=== PATIENT | female | born 1990 | race Caucasian/White ===

== ENCOUNTER 2017-03-25 11:40 | Inpatient (IN) | payer OTHER ==
[2017-03-25] MEDS ORDERED: RINGERS SOLUTION,LACTATED 300 ML IV ONE (12:37)
[2017-03-25] MEDS ORDERED: OXYTOCIN/NORMAL SALINE 20 UNIT/1,000 ML RTUINJ IV PRN (12:37)
[2017-03-25] MEDS ORDERED: RINGERS SOLUTION,LACTATED 1,000 ML IV PRN (12:37)
[2017-03-25 13:06] LABS: ABSOLUTE EOSINOPHILS # (AUTO) 0.3 10^3/uL (0.0-0.6); ABSOLUTE MONOCYTES (AUTO) 0.5 10^3/uL (0.1-1.4); BASOPHILS % (AUTO) 0.4 % (0-2); EOSINOPHILS % (AUTO) 3.3 % (0-6); HEMATOCRIT 32.7 % (36.0-47.0); HEMOGLOBIN 11.4 g/dL (12.0-15.5); HGB HCT DIFFERENCE 1.5; LYMPHOCYTES % (AUTO) 19.9 % (13-45); MEAN CORPUSCULAR HEMOGLOBIN 31.9 pg (27.0-33.4); MEAN CORPUSCULAR VOLUME 91 fl (80-97); MONOCYTES % (AUTO) 5.2 % (3-13); RED BLOOD COUNT 3.59 10^6/uL (3.72-5.28); SEGMENTED NEUTROPHILS % (AUTO) 71.2 % (42-78); WHITE BLOOD COUNT 9.8 10^3/uL (4.0-10.5)
[2017-03-25 13:18] LABS: APPEARANCE,URINE CLEAR; BILIRUBIN,URINE NEGATIVE (NEGATIVE); GLUCOSE, URINE NEGATIVE (NEGATIVE); KETONES,URINE TRACE mg/dL (NEGATIVE); LEUKOCYTE ESTERASE,URINE NEGATIVE (NEGATIVE); NITRITE,URINE NEGATIVE (NEGATIVE); PROTEIN,URINE NEGATIVE (NEGATIVE); URINE SPECIFIC GRAVITY 1.003; UROBILINOGEN,URINE NEGATIVE mg/dL (<2.0)
[2017-03-25 13:59] LABS: URINE BARBITURATES SCREEN NEGATIVE; URINE METHADONE SCREEN NEGATIVE; URINE OPIATES LOW NEGATIVE; URINE PHENCYCLIDINE SCREEN NEGATIVE
--- NOTE | 2017-03-25 14:39 | L&D Progress Notes ---
PROGRESS NOTES Datetime Report Generated by CPN: 03/25/2017 14:38 PROGRESS NOTE Impression Other: contractions spacing Procedures: Artificial ROM Procedures- Other: clear fluid Plan: Continue Present Management Informed Consent Obtained: Vaginal Delivery Vital Signs : Reviewed; Within Normal Limits Comment: contractions painful, slightly spacing. AROM for augmentation. continue current mgt. pt to get up out of bed. anticipate . c/w Dr Hendricks. Plan current dose of synthroid 137 mcg daily post and lovenox 40mg subcutaneously daily. Will need rhogam PP if baby is Rh positive VAGINAL EXAM Dilatation: 5 Effacement: 90 Station: -2 Contractions: Q3 mins MEMBRANES Membranes: Ruptured Amniotic Fluid Color: Clear FETUS A FHR - Baseline: 115 Monitoring: External US Variability: Moderate 6-25bpm Accelerations: 15X15 Decelerations: None FHR Category: Category I : 40.0 Estimated Weight (gm): 3200 Presentation: Vertex Presentation- Other: by sono today and leopolds SIGNATURE SIGNATURE: [id number] Assignment: Tammy Hendricks MD Signature: with User ID: [email or web address] : with User ID: [email or web address]
[2017-03-25] MEDS ORDERED: MISOPROSTOL 0.2 MG TABLET ONE (16:12)
[2017-03-25] MEDS ORDERED: OXYTOCIN/NORMAL SALINE 20 UNIT/1,000 ML RTUINJ ONE ×2 (16:12→17:11)
[2017-03-25] MEDS ORDERED: LIDOCAINE 1% INJ-PF (10 MG/ML) 30 ML SDV ONE (16:12)
[2017-03-25] MEDS ORDERED: ZOLPIDEM TARTRATE 5 MG TABLET PO PRN (18:42)
[2017-03-25] MEDS ORDERED: PSEUDOEPHEDRINE HCL 30 MG TABLET PO PRN (18:42)
[2017-03-25] MEDS ORDERED: DIPH/PERTUSS(ACELL)/TETANUS VAC/PF 0.5 ML SYR (>=10YO) IM PRN (18:42)
[2017-03-25] MEDS ORDERED: PROMETHAZINE HCL INJ 25 MG/1 ML VIAL IV PRN (18:42)
[2017-03-25] MEDS ORDERED: ACETAMINOPHEN 650 MG SUPP.RECT PR PRN (18:42)
[2017-03-25] MEDS ORDERED: ACETAMINOPHEN WITH CODEINE #3 TABLET PO PRN (18:42)
[2017-03-25] MEDS ORDERED: MEASLES,MUMPS&RUBELLA VACC/PF 0.5 ML VIAL SUBCUT PRN (18:42)
[2017-03-25] MEDS ORDERED: PROMETHAZINE HCL 25 MG TABLET PO PRN (18:42)
[2017-03-25] MEDS ORDERED: PROMETHAZINE HCL 25 MG SUPP.RECT PR PRN (18:42)
[2017-03-25] MEDS ORDERED: DIPHENHYDRAMINE HCL 25 MG CAPSULE PO PRN (18:42)
[2017-03-25] MEDS ORDERED: OXYTOCIN/NORMAL SALINE 1,000 ML IV PRN (18:42)
[2017-03-25] MEDS ORDERED: BENZOCAINE/MENTHOL AEROSOL SPRAY 56 ML TOP PRN (18:42)
[2017-03-25] MEDS ORDERED: DIBUCAINE 1% OINTMENT 28 GM TP PRN (18:42)
[2017-03-25] MEDS ORDERED: NA PHOS,M-B/NA PHOS,DI-BA (ADULT) 133 ML ENEMA PR PRN (18:42)
[2017-03-25] MEDS ORDERED: MAGNESIUM HYDROXIDE SUSP 30 ML UDCUP PO PRN (18:42)
[2017-03-25] MEDS ORDERED: IBUPROFEN 800 MG TABLET ONE (19:26)
[2017-03-25] MEDS: IBUPROFEN 800 MG TABLET PO SCH (19:28)
[2017-03-25 19:37] LABS: PARTIAL THROMBOPLASTIN TIME 27.3 SEC (23.5-35.8)
--- NOTE | 2017-03-25 19:40 | Delivery Summary ---
Del Sum A-C Datetime Report Generated by CPN: 03/25/2017 19:40 DELIVERY PERSONNEL DELIVERY PERSONNEL: [id number] Delivery Doctor:: Eliu Rodríguez CNM Nurse Visual Aid Expert Certified:: Eliu Rodríguez CNM Labor and Delivery Nurse:: CAROLYN Pathak Labor and Delivery Nurse:: Nancy Dodson RN Train Operator/SALES REPRESENTATIVE EDUCATION COURSES: J Shaikh ST Train Operator/SALES REPRESENTATIVE EDUCATION COURSES: Inocencia Monroy, HOIST MECHANIC MATERNAL INFORMATION Delivery Anesthesia: Local Medications After Delivery: Pitocin Bolus-Please Comment; Pitocin Drip 20 Units/1000ml NSS Maternal Complications: None Provider Comments: Admitted for labor. labor progressed normally to DIRECT OA [facility] SHOULDERS RAPIDLY DELIVERING DIRECT OA. CORD DOUBLE CLAMPED AND CUT BY FOB AT 1.5 MINS. PLACENTA DELIVERED SPONTANEOUSLY AND INTACT WITH 3VC. LACERATIONS DESCRIBED ABOVE REPAIRED UNDER LOCAL ANESTHESIA. MOTHER AND STABLE IN L_D #5 FOR THE FIRST 1/2 HOUR, THEN TO NURSERY FOR EVALUATION. LABOR SUMMARY EDC: 03/25/2017 00:00 No. Babies in Womb: 1 Attempted: No Labor Anesthesia: None LABOR INFORMATION Reason for Induction: Not Applicable Onset of Labor: 03/25/2017 14:20 Complete Dilatation: 03/25/2017 16:50 Oxytocin: N/A Group B Beta Strep: NEGATIVE Antibiotics # of Doses: 0 Antibiotics Time of Last Dose: N/A Name of Antibiotic Given: N/A Steroids Given: None Reason Steroids Not Administered: Not Applicable MEMBRANES Membranes Rupture Method: Artificial Rupture of Membranes: 03/25/2017 14:20 Length of Rupture (hr): 2.80 Amniotic Fluid Color: Clear Amniotic Fluid Amount: Moderate STAGES OF LABOR Stage 1 hr: 2 Stage 1 min: 30 Stage 2 hr: 0 Stage 2 min: 18 Stage 3 hr: 0 Stage 3 min: 8 Total Time in Labor hr: 2 Total Time in Labor min: 56 VAGINAL DELIVERY Episiotomy: None Laceration #1: Periurethral Laceration Extension #1: First Degree Laceration #2: Perineal Laceration Extension #2: First Degree Laceration #3: Perineal Laceration Extension #3: Second Degree Laceration Repair: Yes Laceration Repair Note: right periurethral and left periurethral extending to second degree perineal laceration with golf-ball sized hematoma under lac-viewed with Dr Hendricks. laceration repair over hematoma and pt encouraged to use ice packs frequently and notify nursing if it enlarges Sponge Count Correct: N/A Sharps Count Correct: N/A CSECTION DELIVERY Primary Indication: N/A Secondary Indication: N/A CSection Incidence: N/A Labor: N/A Elective: N/A CSection Incision: N/A BABY A INFORMATION Infant Delivery Date/Time: 03/25/2017 17:08 Method of Delivery: Vaginal Born in Route : No : N/A Forceps: N/A Vacuum Extraction: N/A Shoulder Dystocia : No PRESENTATION/POSITION BABY A Presentation: Cephalic Cephalic Presentation: Vertex Vertex Position: OA Breech Presentation: N/A PLACENTA INFORMATION BABY A Placenta Delivery Time : 03/25/2017 17:16 Placenta Method of Delivery: Spontaneous Placenta Status: Delivered SCORES BABY A Heart Rate 1 min: >100 bpm Resp Effort 1 min: Good Cry Reflex Irritability 1 min: Cough or Sneeze or Pulls Away Muscle Tone 1 min: Active Motion Color 1 min: Body Bement, Extremities Blue Resuscitation Effort 1 min: Tactile Stimulation SCORE 1 MIN: 9 Heart Rate 5 min: >100 bpm Resp Effort 5 min: Good Cry Reflex Irritability 5 min: Cough or Sneeze or Pulls Away Muscle Tone 5 min: Active Motion Color 5 min: Body B[place], Extremities Blue Resuscitation Effort 5 min: N/A SCORE 5 MIN: 9 Resuscitation Effort 10 min: N/A INFORMATION BABY A Gestational Age at Delivery: 40.0 Gestational Status: Full Term- 39- 40.6 Weeks Infant Outcome : Liveborn Condition : Stable Sex: Male IDENTIFICATION BABY A Verification Date/Time: 03/25/2017 17:08 ID Band Number: [id number] Mother's Name Verified: Yes RN Verifying : C. Odell, BL. West, RN WEIGHT/LENGTH BABY A Infant Birthweight (gm): 3750 Weight (lb): 8 Infant Weight (oz): 4 Length (in): 20.50 Length (cm): 52.07 CORD INFORMATION BABY A No. Cord Vessels: 3 Nuchal Cord : N/A Cord Blood Taken: Yes-For Eval (Mom's Blood Type - or O+) Infant Suction: Mouth; Nose ASSESSMENT BABY A Infant Complications: None Physical Findings at Delivery: Within Normal Limits Infant Respirations: Appears Normal Skin to Skin: Yes Machine Cell Tuber/ALS Called : No Care By: Kala Dodson RN Transferred To: Remains with Mother BABY B INFORMATION : N/A SIGNATURES Assignment: Tammy Hendricks MD Signature: with User ID: [email or web address] : with User ID: [email or web address] : I was personally available for consultation and serving as supervising physician for the P.
[2017-03-25 19:50] LABS: CREATININE RESULT 0.53 mg/dL (0.52-1.25)
[2017-03-25] MEDS ORDERED: ENOXAPARIN SODIUM INJ 40 MG/0.4 ML DISP.SYRIN SUBCUT ONE (20:00)
--- NOTE | 2017-03-25 20:03 | Admission Physical ---
Datetime Report Generated by CPN: 03/25/2017 20:03 CURRENT ADMISSION Chief Complaint: Uterine Contractions; Sent from OB Office for Evaluation and Treatment - Please Specify Chief Complaint Other: NONREACTIVE NST IN CLINIC. Also pt sylvain regularly with cx 4/-1 Indication for Induction: Not Applicable Indication for Induction: Term, Intrauterine ; Active Labor Admit Plan: Admit to Unit; Initiate Labor Protocol Admit Plan- Other: augmentation if needed ALLERGIES Medication Allergies: Yes Medication Allergies: penicillin G procaine/UT/Facial swelling (03/25/2017) Medication Allergies: cillins- hives, facial swelling Latex: No Latex Allergies Food Allergies: NONE Environmental Allergies: NONE OBSTETRICAL HISTORY EDC: 03/25/2017 00:00 : 2 Para: 1 Term: 1 : 0 SAB: 0 IAB: 0 Ectopic: 0 Livin Cesareans: 0 VBACs: 0 Multiple Births: 0 Gestational Diabetes: No Rh Sensitization: No Incompetent Cervix: No JACK: No Infertility: No ART Treatment: No Uterine Anomaly: No IUGR: No Hx Previous C/S: No Macrosomia: No Hx Loss/Stillborn: No PIH: No Hx : No Placenta Previa/Abruption: No Depression/PP Depression: No PTL/PROM: No Post Hemorrhage: No Current Procedures: Ultrasound SEE RECORDS Alcohol: No Marijuana : No Cocaine: No Other Illicit Drugs: No Cigarettes: Former Smoker. 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 INFECTIOUS HISTORY Gonorrhea: No Genital Herpes: No Chlamydia: Yes Tuberculosis: No Syphilis: No Hepatitis: No HIV/AIDS Exposure: No Rash or Viral Illness: No HPV: No Infectious History Comments: 2009 PHYSICAL EXAM General: Normal HEENT: Normal Neurologic: Normal Thyroid: Deferred Heart: Normal Lungs: Normal Breast: Deferred Back: Normal Abdomen: Normal Genitourinary Exam: Deferred Extremities: Normal DTRs: Deferred Pelvic Type: Adequate Vital Signs: Reviewed; Within Normal Limits VAGINAL EXAM Dilatation: 5 Effacement: 90 Station: -2 Contraction Comments: Q3 mins MEMBRANES Membranes: Ruptured Amniotic Fluid Color: Clear FETUS A EGA: 40.0 Monitoring: External US FHR- Baseline: 115 Variability: Moderate 6-25bpm Decelerations: None FHR Category: Category I FHR Comments: reactive NST, negative TOOL POLISHER at [facility] Estimated Weight (gm): 3200 Presentation: Vertex Presentation- Other: by sono today and lekeshawnds Admit Comment: 27yo , pelvis provento 7lb 2oz. hx of asthma as a child with no asthma attack in over 10 yrs. Also hx of thyroid CA with thyroidectomy and subsequent blood clots in neck. Baby has Left ureteropelvic junction obstruction -followed by MFM-Peds notified by Dr Hendricks. Pt admitted for Labor, GBS negative. prefers saline lock only and plans no epidural. DVT prophylaxis by ambulation. Dr Moody's office called-Nati states pt had one visit Feb 20 this year and that she will fax over MD notes. Plan: routine labor care. augmentation if needed. anticipate . PLANS FOR LABOR AND DELIVERY Labor and Delivery: None Pain Management: Natural Feeding Preference: Breast Benefit of Breast Feed Discussed: Yes Circumcision: Yes INFORMED CONSENT Informed Consent Obtained: Vaginal Delivery Assignment: Tammy Hendricks MD Signature: with User ID: [email or web address], Addendum/Amendment: Rh negative. received rhogam Signature: with User ID: [email or web address] : with User ID: Alan, Addendum/Amendment: Rh negative. received rhogam : with User ID: [email or web address]
[2017-03-25] MEDS: FAMOTIDINE 20 MG TABLET PO SCH (21:00)
[2017-03-25] MEDS: ACETAMINOPHEN WITH CODEINE #3 TABLET PO PRN (21:01)
[2017-03-26] MEDS: ACETAMINOPHEN WITH CODEINE #3 TABLET PO PRN ×3 (01:58→22:30)
[2017-03-26] MEDS: LEVOTHYROXINE SODIUM 0.112 MG TABLET PO SCH (05:55)
[2017-03-26] MEDS: IBUPROFEN 800 MG TABLET PO SCH ×3 (05:56→21:19)
[2017-03-26] MEDS: LEVOTHYROXINE SODIUM 0.025 MG TABLET PO SCH (05:56)
[2017-03-26] MEDS ORDERED: LEVOTHYROXINE SODIUM 0.05 MG TABLET PO SCH (06:00)
[2017-03-26 07:52] LABS: HEMATOCRIT 29.4 % (36.0-47.0); HEMOGLOBIN 10.2 g/dL (12.0-15.5); HGB HCT DIFFERENCE 1.2; MEAN CORPUSCULAR HEMOGLOBIN 32.1 pg (27.0-33.4); MEAN CORPUSCULAR HGB CONC 34.6 g/dL (32.0-36.0); MEAN CORPUSCULAR VOLUME 93 fl (80-97); RED BLOOD COUNT 3.17 10^6/uL (3.72-5.28); WHITE BLOOD COUNT 13.4 10^3/uL (4.0-10.5)
[2017-03-26] MEDS ORDERED: PRENATAL VITAMIN W-O CA NO5/FE FUMARATE/FA CAPSULE PO SCH (10:00)
--- NOTE | 2017-03-26 10:22 | PDOC PROGRESS REPORT ---
Subjective-OB Subjective: Post Delivery Day: 1 27 year old. Denies any needs at this time, ochia stable, pain well controlled , voiding without difficulty Physical Exam (OB) Vital Signs: Temp Pulse Resp BP Pulse Ox 97.6 F 80 14 117/74 100 03/26/17 08:05 03/26/17 08:05 03/26/17 08:05 03/26/17 08:05 03/26/17 08:05 Intake & Output 03/25/17 03/26/17 03/27/17 06:59 06:59 06:59 Intake Total 500 Balance 500 Weight 74.3 kg - Lochia Lochia Amount: Small 10-25 ml Lochia Color: Rubra/Red - Abdomen Description: Tender, Soft, Round Hernia Present: No Fundal Description: Firm, Midline Fundal Height: u/u - u/2 Objective-Diagnostic Laboratory: 03/26/17 07:30 03/25/17 19:20 03/25/17 03/25/17 03/25/17 12:20 12:49 12:49 WBC 9.8 RBC 3.59 L Hgb 11.4 L Hct 32.7 L MCV 91 MCH 31.9 MCHC 35.0 RDW 13.0 Plt Count 149 L Seg Neutrophils % 71.2 Lymphocytes % 19.9 Monocytes % 5.2 Eosinophils % 3.3 Basophils % 0.4 Absolute Neutrophils 7.0 Absolute Lymphocytes 2.0 Absolute Monocytes 0.5 Absolute Eosinophils 0.3 Absolute Basophils 0.0 Creatinine Est GFR ( Amer) Est GFR (Non-Af Amer) Urine Color STRAW Urine Appearance CLEAR Urine pH 6.0 Ur Specific [place]idan 1.003 Urine Protein NEGATIVE Urine Glucose (UA) NEGATIVE Urine Ketones TRACE H Urine Blood MODERATE H Urine Nitrite NEGATIVE Ur Leukocyte Esterase NEGATIVE Blood Type O NEGATIVE Antibody Screen POSITIVE 03/25/17 03/26/17 19:20 07:30 WBC 13.4 H RBC 3.17 L Hgb 10.2 L Hct 29.4 L MCV 93 MCH 32.1 MCHC 34.6 RDW 13.0 Plt Count 153 Seg Neutrophils % Lymphocytes % Monocytes % Eosinophils % Basophils % Absolute Neutrophils Absolute Lymphocytes Absolute Monocytes Absolute Eosinophils Absolute Basophils Creatinine 0.53 Est GFR ( Amer) > 60 Est GFR (Non-Af Amer) > 60 Urine Color Urine Appearance Urine pH Ur Specific Sher[place] Urine Protein Urine Glucose (UA) Urine Ketones Urine Blood Urine Nitrite Ur Leukocyte Esterase Blood Type Antibody Screen Assessment and Plan(PN) - Assessment and Plan (1) Spontaneous vaginal delivery Is this a current diagnosis for this admission?: Yes Plan: routine pp care (2) abnormality in Qualifiers: Fetus number: single or unspecified fetus Qualified Code(s): O35.9XX0 - Maternal care for (suspected) abnormality and damage, unspecified, not applicable or unspecified Is this a current diagnosis for this admission?: Yes Plan: n/a (3) H/O thyroidectomy Is this a current diagnosis for this admission?: Yes Plan: n/a (4) Hx of blood clots Is this a current diagnosis for this admission?: Yes (5) Rh negative status during Qualifiers: Trimester: third trimester Qualified Code(s): O09.893 - Supervision of other high risk pregnancies, third trimester Is this a current diagnosis for this admission?: Yes (6) Thyroid cancer Is this a current diagnosis for this admission?: Yes - Time Spent with Patient Time with patient: Less than 15 minutes Critical Time spent with patient: Less than 15 minutes Medications reviewed and adjusted accordingly: Yes - Disposition Anticipated Discharge: Home Within: within 24 hours
[2017-03-26] MEDS: ENOXAPARIN SODIUM INJ 40 MG/0.4 ML DISP.SYRIN SUBCUT SCH (10:38)
[2017-03-26] MEDS: SENNOSIDES/DOCUSATE 8.6-50 MG 1 EACH TABLET PO SCH (10:39)
[2017-03-26] MEDS: PRENATAL VITAMIN W DHA CAPSULE PO SCH (10:39)
[2017-03-26] MEDS: FAMOTIDINE 20 MG TABLET PO SCH ×2 (10:39→21:20)
[2017-03-26] MEDS: FERROUS SULFATE 325 MG TABLET PO SCH ×2 (10:39→17:45)
[2017-03-26] MEDS: DOCUSATE SODIUM 100 MG CAPSULE PO SCH ×2 (10:40→17:45)
[2017-03-26] MEDS: GLYCERIN/WITCH HAZEL LEAF 1 EACH MED..PAD TP PRN ×2 (10:44→22:30)
[2017-03-27] MEDS: IBUPROFEN 800 MG TABLET PO SCH ×2 (05:48→13:35)
[2017-03-27] MEDS: LEVOTHYROXINE SODIUM 0.112 MG TABLET PO SCH (05:49)
[2017-03-27] MEDS: LEVOTHYROXINE SODIUM 0.025 MG TABLET PO SCH (05:49)
[2017-03-27 08:35] VITALS: BP 97/47
[2017-03-27] MEDS: FERROUS SULFATE 325 MG TABLET PO SCH ×2 (09:19→17:40)
[2017-03-27] MEDS: SENNOSIDES/DOCUSATE 8.6-50 MG 1 EACH TABLET PO SCH (09:19)
[2017-03-27] MEDS: PRENATAL VITAMIN W DHA CAPSULE PO SCH (09:19)
[2017-03-27] MEDS: ENOXAPARIN SODIUM INJ 40 MG/0.4 ML DISP.SYRIN SUBCUT SCH (09:19)
[2017-03-27] MEDS: FAMOTIDINE 20 MG TABLET PO SCH (09:19)
[2017-03-27] MEDS: DOCUSATE SODIUM 100 MG CAPSULE PO SCH ×2 (09:20→17:40)
--- NOTE | 2017-03-27 10:12 | PDOC DISCHARGE SUMMARY ---
Final Diagnosis Discharge Date: 03/27/17 - Final Diagnosis (1) Spontaneous vaginal delivery Is this a current diagnosis for this admission?: Yes (2) abnormality in Is this a current diagnosis for this admission?: Yes (3) H/O thyroidectomy Is this a current diagnosis for this admission?: Yes (4) Hx of blood clots Is this a current diagnosis for this admission?: Yes (5) Rh negative status during Is this a current diagnosis for this admission?: Yes (6) Thyroid cancer Is this a current diagnosis for this admission?: Yes Discharge Data - Discharge Medication Home Medications: Levothyroxine Sodium [Synthroid] 1 tab PO DAILY 03/25/17 Vit/Iron Fum/Folic AC [ Tablet] 1 tab PO DAILY 03/25/17 Acetaminophen with Codeine [Tylenol #3 Tablet] 2 each PO Q4HP PRN #30 tablet Docusate Sodium [Colace 100 mg Capsule] 100 mg PO BID #60 capsule 03/27/17 Enoxaparin Sodium [Lovenox Inj 40 mg/0.4 ml Disp.syrin] 40 mg SUBCUT DAILY #30 disp.syrin 03/27/17 Ferrous Sulfate [Feosol 325 mg Tablet] 325 mg PO BID #60 tablet 03/27/17 Ibuprofen [Motrin 800 mg Tablet] 800 mg PO Q8 #60 tablet 03/27/17 Gestational Age: 40 Reason(s) for Admission: Onset of Labor Procedures: NST Intrapartum Procedure(s): Spontaneous Vaginal Delivery Complication(s): Laceration-Periurethral Complication(s) Note: hematoma - Diagnosis Test Laboratory: Temp Pulse Resp BP Pulse Ox 98.3 F 84 15 97/47 L 99 03/27/17 08:33 03/27/17 08:33 03/27/17 08:33 03/27/17 08:33 03/27/17 08:33 03/25/17 03/25/17 03/26/17 12:20 12:49 07:30 RBC 3.59 L 3.17 L Hgb 11.4 L 10.2 L Hct 32.7 L 29.4 L Urine Opiates Screen NEGATIVE - Discharge information/Instructions Discharge Activity: Activity As Tolerated, Pelvic Rest, No tub bath Discharge Diet: Regular Disposition: HOME, SELF-CARE Follow [facility]: [facility] in: 4, Weeks
== END 2017-03-27 20:18 | disposition home or self-care (01) | DRG 775 ==
LOC: LR 12:39 → 2S 20:00
PROVIDERS: ADMIT Student in an Organized Health Care Education/Training Program; ATTEND Student in an Organized Health Care Education/Training Program
PROC: 10E0XZZ Delivery of Products of Conception, External Approach (ICD-10-PCS; principal; 2017-03-25)
PROC: 0KQM0ZZ Repair Perineum Muscle, Open Approach (ICD-10-PCS; 2017-03-25)
PROC: 4A1HXCZ Monitoring of Products of Conception, Cardiac Rate, External Approach (ICD-10-PCS; 2017-03-25)
DX: O70.1 Second degree perineal laceration during delivery (principal); O99.513 Diseases of the respiratory system complicating pregnancy, third trimester; E89.0 Postprocedural hypothyroidism; J45.909 Unspecified asthma, uncomplicated; Z3A.40 40 weeks gestation of pregnancy; Z88.0 Allergy status to penicillin; Z87.891 Personal history of nicotine dependence; Z85.850 Personal history of malignant neoplasm of thyroid; Z37.0 Single live birth
CPT/HCPCS: 36415; 80307; 81005; 82565; 85025; 85027; 85610; 85730; 86592; 86850; 86870; 86900; 86901; J1650; J2590; J3490